=== PATIENT | female | born 1960 | race Caucasian/White ===

== ENCOUNTER 2018-12-10 12:42 | Emergency (ER) | payer BC ==
--- NOTE | 2018-12-10 13:05 | EDM.PDOC ---
ED HPI GENERAL MEDICAL PROBLEM - General Stated Complaint: FINGER DOG BITE Time Seen by Provider: 12/10/18 12:55 Source of Information: Reports: Patient History Limitations: Reports: No Limitations - History of Present Illness INITIAL COMMENTS - FREE TEXT/NARRATIVE: This is a 58yo F here for a recent dog bite. The dog was injured by a car and she was trying to help it move. The dog is up to date on its shots per the patient. Patient denies any issues with hand movement. Onset: Sudden Location: Reports: Upper Extremity, Left Severity: Mild ED ROS GENERAL - Review of Systems Review Of Systems: ROS reveals no pertinent complaints other than HPI. ED EXAM, ANIMAL BITE - Physical Exam Exam: See Below Exam Limited By: No Limitations General Appearance: Alert, WD/WN, No Apparent Distress Throat/Mouth: Normal Inspection Head: Atraumatic, Normocephalic Neck: Normal Inspection Respiratory/Chest: No Respiratory Distress Cardiovascular: Normal Peripheral Pulses Skin Exam: Other (puncture wound of the palm, laceration 1.5cm of the 5th digit ventral proximal digit; excoriation of the thumb dorsum) Departure - Departure Time of Disposition: 13:20 Disposition: Home, Self-Care 01 Condition: Good Clinical Impression: Dog bite Qualifiers: Encounter type: initial encounter Qualified Code(s): W54.0XXA - Bitten by dog, initial encounter - Discharge Information Referrals: PCP,None [Primary Care Provider] - - Problem List & Annotations (1) Dog bite SNOMED Code(s): 010731168, [id number] Code(s): W54.0XXA - BITTEN BY DOG, INITIAL ENCOUNTER Status: Acute Priority: High Current Visit: Yes Qualifiers: Encounter type: initial encounter Qualified Code(s): W54.0XXA - Bitten by dog, initial encounter - Problem List Review Problem List Initiated/Reviewed/Updated: Yes - Assessment/Plan Plan: Counseled on antibiotics and side effects. Patient placed on augmentin bid for 10 days and tetanus IM given. Patient to f/u if bite gets infected or worsening symptoms or new symptoms. F/u in ER or clinic as needed.
[2018-12-10] MEDS ORDERED: Amoxicillin/Clavulanate K 875-125 MG Tab ONE (13:20)
[2018-12-10] MEDS ORDERED: Diphtheria,Pertussis(Acell),Tetanus Vaccine 0.5 ML SDV inactive IM ONE (13:42)
== END 2018-12-10 13:14 | disposition home or self-care (01) ==
LOC: LB.ED 12:42
DX: S61.257A Open bite of left little finger without damage to nail, initial encounter (principal); Z23 Encounter for immunization; W54.0XXA Bitten by dog, initial encounter
CPT/HCPCS: 90471; 99282; A9270-GY